=== PATIENT | female | born 1970 | race Caucasian/White ===

== ENCOUNTER 2020-05-10 08:19 | Day surgery (SDC) | payer BC ==
[~2020-05-10 08:19] MED LIST: Lactated Ringers 1,000 ML IV SCH; Midazolam 1 MG/ML 2 ML SDV ONE; Propofol 200 MG/20 ML SDV ONE
--- NOTE | 2020-05-10 08:55 | PCM.PREANE ---
Preanesthetic Assessment - Anesthesia/Transfusion/Family Hx Anesthesia History: Prior Anesthesia Without Reaction Family History of Anesthesia Reaction: No Transfusion History: No Prior Transfusion(s) Intubation History: Unknown - Review of Systems General: No Symptoms Pulmonary: No Symptoms Cardiovascular: No Symptoms Gastrointestinal: Hematochezia Neurological: No Symptoms Other: Reports: None - Physical Assessment Vital Signs: Last Vital Signs Temp 36.3 C 05/10/20 08:30 Pulse 75 05/10/20 08:30 Resp 18 05/10/20 08:30 BP 144/78 H 05/10/20 08:30 Pulse Ox 98 05/10/20 08:30 Height: 5 ft 5 in Weight: 83.007 kg ASA Class: 2 Mental Status: Alert & Oriented x3 Airway Class: Mallampati = 2 Dentition: Reports: Normal Dentition, Broken Tooth/Teeth (lower right and left (back)) Thyro-Mental Finger Breadths: 3 Mouth Opening Finger Breadths: 3 ROM/Head Extension: Full Lungs: Clear to Auscultation, Normal Respiratory Effort Cardiovascular: Regular Rate, Regular Rhythm - Allergies Allergies/Adverse Reactions: Allergies Allergy/AdvReac Type Severity Reaction Status Date / Time codeine Allergy Vomiting Verified 05/04/20 09:12 - Blood Blood Available: No - Anesthesia Plan Pre-Op Medication Ordered: None - Acknowledgements Anesthesia Type Planned: MAC Pt an Appropriate Candidate for the Planned Anesthesia: Yes Alternatives and Risks of Anesthesia Discussed w Pt/Guardian: Yes Pt/Guardian Understands and Agrees with Anesthesia Plan: Yes PreAnesthesia Questionnaire - Past Health History Medical/Surgical History: Denies Medical/Surgical History HEENT History: Reports: Allergic Rhinitis, Other (See Below) Other HEENT History: wears glasses Cardiovascular History: Reports: High Cholesterol, Hypertension Respiratory History: Reports: None Gastrointestinal History: Reports: GERD Other Gastrointestinal History: intermittent epigastric pain Genitourinary History: Reports: None Musculoskeletal History: Reports: Arthritis, Back Pain, Chronic Neurological History: Reports: Migraines Psychiatric History: Reports: Anxiety Endocrine/Metabolic History: Reports: Diabetes, Type II, Obesity/BMI 30+ Hematologic History: Reports: None Immunologic History: Reports: None Oncologic (Cancer) History: Reports: None Dermatologic History: Reports: Other (See Below) Other Dermatologic History: dry itchy patches to skin and ears - Past Surgical History Head Surgeries/Procedures: Reports: None HEENT Surgical History: Reports: Oral Surgery Cardiovascular Surgical History: Reports: None Respiratory Surgical History: Reports: None GI Surgical History: Reports: None Female Surgical History: Reports: Tubal Ligation Endocrine Surgical History: Reports: None Neurological Surgical History: Reports: None Musculoskeletal Surgical History: Reports: None Oncologic Surgical History: Reports: None Dermatological Surgical History: Reports: None - SUBSTANCE USE Tobacco Use Status *Q: Current Every Day Tobacco User (1-2 ppd) Tobacco Use Within Last Twelve Months: Cigarettes - HOME MEDS Home Medications: Home Meds Betamethasone Dipropionate [Diprosone 0.05% Oint] 1 applic TOP ASDIRECTED PRN 05/04/20 [History] Famotidine/Ca Carb/Mag Hydrox [Pepcid Complete] 1 tab.chew CHEW ASDIRECTED PRN 05/04/20 [History] Garlic 500 mg PO DAILY 05/04/20 [History] Multivitamin 1 tab PO DAILY 05/04/20 [History] Neomycin/Polymyxin B Sulf/HC [Ajfzrpfe-[place]-Xu Ear Susp] 1 drop EARBOTH BID 05/04/20 [History] atorvaSTATin Calcium [Lipitor] 20 mg PO BEDTIME 05/04/20 [History] guaiFEN/Phenyleph/Acetaminophn [Eq Sinus Congestion-Pain Cplt] 2 tab PO DAILY 05/04/20 [History] lisinopriL [Lisinopril] 10 mg PO BEDTIME 05/04/20 [History] metFORMIN [Glucophage XR] 2,000 mg PO ACDINNER 05/04/20 [History] - CURRENT (IN HOUSE) MEDS Current Meds: Current Medications Lactated Ringer's (Ringers, Lactated) 1,000 mls @ 125 mls/hr IV ASDIRECTED DULCE Discontinued Medications Midazolam HCl (Versed 1 Mg/Ml) Confirm Administered Dose 2 mg .ROUTE .STK-MED ONE Stop: 05/10/20 07:03 Propofol (Diprivan 20 Ml) Confirm Administered Dose 600 mg .ROUTE .STK-MED ONE Stop: 05/10/20 07:03
--- NOTE | 2020-05-10 09:44 | PCM.OPNOTE ---
- General Post-Op/Procedure Note Date of Surgery/Procedure: 05/10/20 Operative Procedure(s): Colonoscopy Findings: Normal colon dictation number [id number] Pre Op Diagnosis: Occ blood in stool Post-Op Diagnosis: Normal colonoscopy. Internal Hemorrhoids. Primary Surgeon: Butch Goldman Pathology: none Complications: None Condition: Good
--- NOTE | 2020-05-10 09:59 | PCM.POSTAN ---
POST ANESTHESIA ASSESSMENT - MENTAL STATUS Mental Status: Alert, Oriented - VITAL SIGNS Vital Signs: Last Vital Signs Temp 36.3 C 05/10/20 08:30 Pulse 77 05/10/20 09:50 Resp 15 05/10/20 09:50 BP 98/55 L 05/10/20 09:50 Pulse Ox 97 05/10/20 09:50 - RESPIRATORY Respiratory Status: Respiratory Rate WNL, Airway Patent, O2 Saturation Stable - CARDIOVASCULAR CV Status: Pulse Rate WNL, Blood Pressure Stable - GASTROINTESTINAL GI Status: No Symptoms - PAIN Pain Score: 0 - POST OP HYDRATION Hydration Status: Adequate & Stable - OBSERVATIONS Free Text/Narrative:: No anesthesia problems
--- NOTE | 2020-05-10 10:27 | PCM48HPAN ---
Post Anesthesia Note - EVALUATION WITHIN 48HRS OF ANESTHETIC Vital Signs in Normal Range: Yes Patient Participated in Evaluation: Yes Respiratory Function Stable: Yes Airway Patent: Yes Cardiovascular Function Stable: Yes Hydration Status Stable: Yes Pain Control Satisfactory: Yes Nausea and Vomiting Control Satisfactory: Yes Mental Status Recovered: Yes Vital Signs: Last Vital Signs Temp 36.3 C 05/10/20 08:30 Pulse 77 05/10/20 09:50 Resp 15 05/10/20 09:50 BP 98/55 L 05/10/20 09:50 Pulse Ox 97 05/10/20 09:50 - COMMENTS/OBSERVATIONS Free Text/Narrative:: No anesthesia problems
--- NOTE | 2020-05-10 14:29 | OR ---
SURGEON: MAZIN TORREZ MD DATE OF PROCEDURE: 05/10/2020 PREOPERATIVE DIAGNOSIS: Occasional blood in the stool. POSTOPERATIVE DIAGNOSES: 1. Normal colonoscopy. 2. Internal hemorrhoids. ANESTHESIA: With anesthesiologist. EXTENT OF COLONOSCOPY: To the cecum and terminal ileum. WITHDRAWAL TIME: 7-1/2 minutes. LIMITATIONS: None. BOWEL PREP: Very good. REASON FOR PROCEDURE: The patient is a pleasant 50-year-old female. She has never had a colonoscopy before. She does not have a history of colon cancer. She does say that she occasionally, over the last 3 years, has blood when she wipes. PROCEDURE IN DETAIL: Physical exam was performed. The major risks and benefits associated with the procedure were explained to the patient in detail. The patient verbalized understanding of the same. The patient was then connected to the appropriate monitoring devices and IV started. EKG, pulse, pulse oximetry, blood pressure, and capnography were monitored throughout the procedure. The patient's oxygen and sedation were provided by the anesthesiologist. The patient was placed in left lateral decubitus position. Sedation began. After adequate sedation was achieved, digital rectal exam was performed. No rectal masses or polyps felt. Now, a well-lubricated Olympus colonoscope was entered into the rectum and advanced under direct visualization to the level of the cecum. The cecum was identified by both visual and anatomic landmarks. The terminal ileum was also intubated. The scope was then slowly withdrawn in a somewhat circular fashion looking at the color, texture, anatomy, and integrity of the mucosa from the cecum to the anal canal. The patient had a very good bowel prep, just very limited liquid stool that was suctioned and irrigated out for excellent look at the mucosa. No polyps or lesions were seen. Scope was retroflexed in the rectum. The patient had some very minimal noninflamed internal hemorrhoids. Scope was then completely removed, and the procedure was terminated. ENDOSCOPIC DIAGNOSES: 1. Normal colonoscopy. 2. Noninflamed internal hemorrhoids. RECOMMENDATIONS: Followup colonoscopy in 10 years or sooner if she develops signs and symptoms such as change in bowel habits or blood in her stool. BON / MONI /[id number]
== END 2020-05-10 10:24 | disposition home or self-care (01) ==
LOC: MW.SDS 08:19
PROVIDERS: ATTEND Surgery
DX: K92.1 Melena (principal); K64.8 Other hemorrhoids; F41.9 Anxiety disorder, unspecified; I10 Essential (primary) hypertension; E78.00 Pure hypercholesterolemia, unspecified; E66.9 Obesity, unspecified; F17.210 Nicotine dependence, cigarettes, uncomplicated; E11.9 Type 2 diabetes mellitus without complications; Z88.5 Allergy status to narcotic agent; Z79.899 Other long term (current) drug therapy; Z79.84 Long term (current) use of oral hypoglycemic drugs; Z98.890 Other specified postprocedural states; Z68.30 Body mass index [BMI] 30.0-30.9, adult
CPT/HCPCS: 45378; J2250; J2704; J7120; 00812

== ENCOUNTER 2023-08-21 19:19 | Emergency (ER) | payer BC ==
[2023-08-21 20:23] LABS: APPEARANCE,URINE CLEAR; BILIRUBIN,URINE NEGATIVE (NEGATIVE); COLOR,URINE YELLOW; GLUCOSE,URINE NEGATIVE (NEGATIVE); KETONES,URINE NEGATIVE (NEGATIVE); LEUKOCYTE ESTERASE,URINE NEGATIVE (NEGATIVE); NITRITE,URINE NEGATIVE (NEGATIVE); OCCULT BLOOD,URINE NEGATIVE (NEGATIVE); PROTEIN,URINE NEGATIVE (NEGATIVE); UROBILINOGEN,URINE 0.2 EU/dL (<2.0)
[2023-08-21 20:37] LABS: BASOPHILS ABSOLUTE AUTO 0.05 K/uL (0.00-0.20); BASOPHILS PERCENT AUTO 0.6 % (0.0-1.0); EOSINOPHILS ABSOLUTE AUTO 0.09 K/uL (0.00-0.45); HEMATOCRIT 41.9 % (37.0-47.0); IMMATURE GRAN ABSOLUTE AUTO 0.02 K/uL (0.00-0.05); IMMATURE GRAN PERCENT AUTO 0.2 % (0.0-0.4); LYMPHOCYTES ABSOLUTE AUTO 3.67 K/uL (1.00-4.80); LYMPHOCYTES PERCENT AUTO 41.7 % (24.0-44.0); MEAN CORPUSCULAR HEMOGLOBIN 29.7 pg (28.0-32.0); MEAN CORPUSCULAR HGB CONC 35.8 g/dL (32.0-36.0); MEAN PLATELET VOLUME 9.8 fL (9.4-12.3); MONOCYTES ABSOLUTE AUTO 0.62 K/uL (0.00-0.80); NEUTROPHILS ABSOLUTE AUTO 4.35 K/uL (1.80-7.70); NEUTROPHILS PERCENT AUTO 49.5 % (41.0-71.0); PLATELET COUNT,PLT 308 K/uL (150-400); RED BLOOD CELL COUNT 5.05 M/uL (4.10-5.30)
[2023-08-21 21:12] LABS: A/G RATIO 1.2 (0.9-1.6); ALANINE AMINOTRANSFERASE,ALT 24 IU/L (14-63); ALBUMIN 4.1 g/dL (3.4-5.0); ALKALINE PHOSPHATASE 83 U/L (46-116); ASPARTATE AMNIOTRANSFERASE,AST 14 IU/L (15-37); BILIRUBIN TOTAL 0.6 mg/dL (0.2-1.0); BLOOD UREA NITROGEN,BUN 11 mg/dL (7.0-18.0); CALCIUM 9.8 mg/dL (8.5-10.1); CHLORIDE,CL 101 mmol/L (98-107); CREATININE 0.9 mg/dL (0.6-1.0); GLUCOSE RANDOM 87 mg/dL (74-106); POTASSIUM,K 3.6 mmol/L (3.5-5.1); PROTEIN TOTAL,TP 7.5 g/dL (6.4-8.2); SODIUM,NA 136 mmol/L (136-145)
[2023-08-21 21:18] LABS: ESTIMATED GFR 76 mL/min (>60)
[2023-08-21] MEDS: Acetaminophen/HYDROcodone 325-5 MG Tab PO ONE (21:34)
[2023-08-21] MEDS: Ondansetron 4 MG Tab.DIS PO ONE (21:35)
== END 2023-08-21 21:58 | disposition home or self-care (01) ==
LOC: MW.ED 19:19
DX: R10.9 Unspecified abdominal pain (principal); I10 Essential (primary) hypertension; E78.00 Pure hypercholesterolemia, unspecified; E11.9 Type 2 diabetes mellitus without complications; Z88.5 Allergy status to narcotic agent
CPT/HCPCS: 36415; 74176; 80053; 81003; 85025; 99284; A9270; 99283